=== PATIENT | male | born 1965 | race Caucasian/White ===

== ENCOUNTER 2023-09-19 08:02 | Outpatient (CLI) | payer OTHER, SELFPAY ==
--- NOTE | ~2023-09-19 | NM_ITS ---
EXAMINATION: NM woo stress w perfusion DATE: 09/19/2023 12:42 INDICATION: Other forms of dyspnea TECHNIQUE: Rest images were obtained following intravenous administration of 9.7 mCi Tc99m tetrofosmi n (Myoview). The patient was infused intravenously with Lexiscan (Regadenoson). Then, 30.6 mCi Tc99m tetrofosmin (Myoview) was administered intravenously, and stress images were obtained in supine posit ion. Additional prone post stress images were obtained Data was reconstructed into short axis and hor izontal and vertical long axis SPECT images. Gated SPECT images were also obtained. COMPARISON: None. FINDINGS: Mild to moderate severity fixed perfusion defect involving the apical septal and mid ángel septal segments with minimal extension into the mid inferoseptal segment consistent with infarct. No nonreversible ischemia. There is normal left ventricular chamber size and wall motion. Mildly decrea sed left ventricular ejection fraction measuring 46%. IMPRESSION: 1. 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 No reversible ischemia. 2. Mildly decreased left ventricular ejection fraction measuring 46%. Reviewed, dictated and finalized at location A. NESS ANALYST CONSULTANT IMPRESSION: 1. Mild to moderate severity nonreversible infarct in the left anterior descend ing coronary artery vascular distribution involving the apical septal, mid ante roseptal and small amount of the mid inferoseptal segments. No reversible ische pacheco. 2. Mildly decreased left ventricular ejection fraction measuring 46%.
--- NOTE | 2023-09-19 08:05 | ECHO_ITS ---
Patient Info Name: Mati Buchanan Age: 58 years : 1965 Gender: Male Ht: 72 in Wt: 194 lbs BSA: 2.13 m2 HR: 95 bpm BP: 137 / 90 mmHg Technical Quality: Fair Exam Date: 09/19/2023 9:28 AM Exam Location: Echo Lab Patient Status: Outpatient Admit Date: 09/19/2023 Staff Ordering Physician: Cain Law DO Soaker Soda Worker: Maria De Jesus Albarran RDCS Attending Provider: Cain Law DO Referring Physician: Thanh CAGLE; Exam Type: CA echo doppler color flow Study Info Indications R06.9 - Unspecified abnormalities of breathing Complete two-dimensional, color flow and Doppler transthoracic echocardiogram is performed. Summary 1. Complete two-dimensional, color flow and Doppler transthoracic echocardiogram is performed. 2. Left ventricular chamber dimension is normal. 3. Left ventricular systolic function is normal, estimated at 55-60%. 4. There is mild concentric increased left ventricular wall thickness. 5. Left ventricular septal wall motion is abnormal with septal motion related to bundle branch block. 6. The left ventricular diastolic function is abnormal. 7. E/e' 19 is elevated. 8. There is trace tricuspid valve regurgitation. 9. No pulmonary hypertension, estimated pulmonary arterial systolic pressure is 18 mmHg. Left Ventricle E/e' 19 is elevated. Left ventricular chamber dimension is normal. Left ventricular systolic function is normal, estimated at 55-60%. There is mild concentric increased left ventricular wall thickness. Left ventricular septal wall motion is abnormal with septal motion related to bundle branch block. The left ventricular diastolic function is abnormal. Right Ventricle Right ventricular chamber dimension is normal. Right ventricular systolic function is normal. Left Atria Left atrial chamber dimension is normal. Right Atria Right atrial chamber dimension is normal. Aortic Valve The aortic valve is trileaflet. There is no aortic valve stenosis. There is no aortic valve regurgitation. Pulmonic Valve There is no pulmonic regurgitation. Mitral Valve There is no mitral valve stenosis. There is no mitral valve regurgitation. Tricuspid Valve There is trace tricuspid valve regurgitation. No pulmonary hypertension, estimated pulmonary arterial systolic pressure is 18 mmHg. Pericardium/Pleural There is no pericardial effusion. Inferior Vena Cava Normal inferior vena cava with >50% collapse upon inspiration consistent with normal right atrial pressure, 5 mmHg. Aorta The aortic root size at the sinus of Valsalva is normal. Left Ventricular Outflow Tract Name Value Normal LVOT 2D LVOT Diameter 2.1 cm LVOT Doppler LVOT Peak Gradient 5 mmHg LVOT Mean Gradient 3 mmHg LVOT VTI 19 cm LVOT VTI/AV VTI Ratio 1.1 LVOT Stroke Volume 67 ml LVOT CO 6.5 l/min LVOT CI 3.1 l/min/m2 Pulmonic Valve Name Value Normal
--- NOTE | 2023-09-19 08:05 | EST_ITS ---
Patient Info Name: Mati Buchanan Age: 58 years : 1965 Gender: Male Ht: 72 in Wt: 164 lbs BSA: 1.94 m2 HR: 96 bpm BP: 138 / 82 mmHg Heart Rhythm: Sinus Rhythm Exam Date: 09/19/2023 10:37 AM Exam Location: Echo Lab Patient Status: Outpatient Admit Date: 09/19/2023 Staff Ordering Physician: Cain Law DO Attending Provider: Cain Law DO Exercise Technologist: Angie Reaves CT Exercise Physician: Cain Law DO Exam Type: CA stress woo w NM Study Info Indications R06.09 - Other forms of dyspnea A regadenoson stress test was performed. Summary 1. 1. Inconclusive lexiscan stress test for ischemic ST changes by ECG criteria due to baseline LBBB. 2. 2. Stable hemodynamics throughout the test. 3. 3. Nuclear scan to follow and will be reported separately. Please correlate with it. 4. 4. Patient informed of the above results. Protocol: Lexiscan Stress ECG Details Stage: REST Duration (min): 0 min : 44 sec HR (bpm): 98 SBP (mmHg): 138 DBP (mmHg): 82 Stage: REST Duration (min): 7 min : 51 sec HR (bpm): 99 SBP (mmHg): 138 DBP (mmHg): 82 Stage: STAGE 1 Duration (min): 1 min : 0 sec HR (bpm): 106 SBP (mmHg): 151 DBP (mmHg): 84 Stage: RECOVERY Duration (min): 1 min : 0 sec HR (bpm): 110 SBP (mmHg): 151 DBP (mmHg): 84 Stage: RECOVERY Duration (min): 2 min : 0 sec HR (bpm): 111 SBP (mmHg): 151 DBP (mmHg): 84 Stage: RECOVERY Duration (min): 2 min : 51 sec HR (bpm): 108 SBP (mmHg): 125 DBP (mmHg): 70 Rest HR: 99 bpm Peak HR: 111 bpm Rest Sys BP: 138 mmHg Peak Sys BP: 151 mmHg Max Pred HR: 162 bpm % Max Pred HR: 69 % Target HR: 138 bpm Max RPP: 16,761 bpm*mmHg Termination Reason: Completed protocol Cardiac Symptoms: Shortness of breath Total Time: 1 min : 0 sec Rest Zavala BP: 82 mmHg Peak Zavala BP: 84 mmHg Total Dose: 0.4 mg Resting ECG Sinus rhythm, LBBB. Stress ECG No ST changes. Arrhythmias None. Report Signatures
== END 2023-09-19 08:03 | disposition home or self-care (01) ==
PROVIDERS: PCP Nurse Practitioner; Visit Provider Internal Medicine Cardiovascular Disease
DX: R06.09 Other forms of dyspnea (principal)
CPT/HCPCS: 78452; 93017; 93306; A9502; J2785